=== PATIENT | female | born 1980 | race Caucasian/White ===

== ENCOUNTER 2018-05-16 03:19 | Emergency (ER) | payer BC ==
[2018-05-16] MEDS ORDERED: Metoclopramide HCl 10 MG/2 ML VIAL ONE (03:43)
[2018-05-16] MEDS ORDERED: Meclizine HCl 25 MG TAB ONE (03:43)
[2018-05-16 04:15] LABS: BHCG - Serum Negative (NEGATIVE); Pregs Control Background? CLEAR/WHITE (CLR/WHITE); Pregs Control Bar Appear? YES (CONTROL BAR)
[2018-05-16 04:19] LABS: #Basophils 0.1 thou/uL (0.0-0.2); #Eosinphils 0.1 thou/uL (0.0-0.7); #Lymphocytes 2.1 thou/uL (1.20-3.40); #Monocytes 0.5 thou/uL (0.11-0.59); %Basophils 0.6 % (0.0-1.0); %Lymphocytes 21.2 % (21.0-51.0); %Monocytes 5.1 % (0.0-10.0); %Neutrophils 72.1 % (42.0-75.0); Hemoglobin 13.7 g/dL (12.0-16.0); Mean Corpuscular HGB CONC 32.5 g/dL (32.0-36.0); Mean Corpuscular Hemoglobin 30.4 pg (27.0-31.0); Mean Corpuscular Volume 93.7 fL (78.0-98.0); Mean Platelet Volume 8.1 fL (7.4-10.4); Platelet Count 235 thou/uL (130-400); RBC Distribution Width 11.4 % (11.5-14.5); White Blood Cell (WBC) Count 9.8 thou/uL (4.8-10.8)
[2018-05-16 04:33] LABS: ALT (SGPT) 13 U/L (8-55); AST (SGOT) 14 U/L (5-34); Albumin 4.1 g/dL (3.5-5.0); Alkaline Phosphatase 49 U/L (40-150); Anion Gap 13 mmol/L (10-20); BUN (Urea Nitrogen) 19 mg/dL (7.0-18.7); Bilirubin, Total 0.4 mg/dL (0.2-1.2); Calc. Creatinine Clearance 0 mL/min (70-130); Calcium 8.7 mg/dL (7.8-10.44); Carbon Dioxide 25 mmol/L (22-29); Chloride 106 mmol/L (98-107); Estimated GFR-MDRD 75; Globulin 2.5 g/dL (2.4-3.5); Glucose 137 mg/dL (70-105); Potassium 3.6 mmol/L (3.5-5.1); Protein, Total 6.6 g/dL (6.0-8.3); Sodium 140 mmol/L (136-145)
[2018-05-16 04:38] LABS: Troponin I Less than 0.010 ng/mL (< 0.028)
[2018-05-16] MEDS ORDERED: Ondansetron HCl/PF 4 MG/2 ML Vial ONE (04:39)
[2018-05-16] MEDS ORDERED: diphenhydrAMINE 50 MG/ML VIAL ONE (05:09)
[2018-05-16] MEDS ORDERED: diphenhydrAMINE 50 MG/ML VIAL IVP SCH (05:15)
== END 2018-05-16 06:08 | disposition home or self-care (01) ==
LOC: ERS 03:19
DX: H81.13 Benign paroxysmal vertigo, bilateral (principal); E03.9 Hypothyroidism, unspecified
CPT/HCPCS: 36415; 80053; 82553; 84484; 84703; 85025; 96365; 96375; J1200; J2405; J2765